=== PATIENT | female | born 1955 | race Caucasian/White ===

== ENCOUNTER 2020-02-27 08:00 | Inpatient (IN) | payer OTHER ==
[~2020-02-27] VITALS: Ht 162.6 cm; Wt 105.2 kg
[2020-02-27] MEDS ORDERED: MELOXICAM15 MG PO (11:53)
[2020-02-27] MEDS ORDERED: GLIPIZIDE XL10 MG PO (11:53)
[2020-02-27] MEDS ORDERED: SYNTHROID50 MCG PO (11:53)
[2020-02-27] MEDS ORDERED: GABAPENTIN400 MG PO (11:54)
[2020-02-27] MEDS ORDERED: GABAPETIN PO (11:55)
[2020-02-27] MEDS ORDERED: SIMVASTA PO (11:55)
[2020-02-27] MEDS ORDERED: HYDROCHLOROTH12.5 MG PO (11:56)
[2020-02-27] MEDS ORDERED: FARXIGA5 MG PO (11:56)
[2020-02-27] MEDS ORDERED: LANTUS (11:57)
[2020-02-27] MEDS ORDERED: ASPIR 8181 MG PO (11:58)
[2020-02-27] MEDS ORDERED: IRBESARTAN-HCT1 EACH PO (11:59)
[2020-03-05] MEDS ORDERED: FARXIGA10 MG PO (10:28)
[2020-03-05] MEDS ORDERED: IRBESARTAN150 MG PO (10:29)
[2020-03-05] MEDS ORDERED: SIMVASTATIN20 MG PO (10:29)
[2020-03-05] MEDS ORDERED: JANUMET 50-1,01 EACH PO (10:29)
[2020-03-05] MEDS ORDERED: LANTUS SOL100 UNIT/1 (10:31)
[2020-03-07] MEDS ORDERED: DUI500 PO (15:48)
[2020-03-07] MEDS ORDERED: ELIQUIS2.5 MG PO (15:48)
[2020-03-07] MEDS ORDERED: PERCOCET 5-3251 EACH PO (15:48)
== END 2020-03-07 18:31 | DRG 470 ==
LOC: O/R 03-05 06:02 → SURH 03-05 06:02
PROVIDERS: ADMIT Orthopaedic Surgery; ATTEND Orthopaedic Surgery
PROC: 0SRD0J9 Replacement of Left Knee Joint with Synthetic Substitute, Cemented, Open Approach (ICD-10-PCS; principal; 2020-03-05 07:00)
DX: M17.12 Unilateral primary osteoarthritis, left knee (principal); E66.9 Obesity, unspecified; E11.9 Type 2 diabetes mellitus without complications; I10 Essential (primary) hypertension; M81.0 Age-related osteoporosis without current pathological fracture

== ENCOUNTER 2021-05-09 06:28 | Day surgery (SDC) | payer OTHER ==
[~2021-05-09 06:28] MED LIST: ASPIR 8181 MG PO; DUI500 PO; ELIQUIS2.5 MG PO; FARXIGA10 MG PO; FARXIGA5 MG PO; GABAPENTIN400 MG PO; GABAPETIN PO; GLIPIZIDE XL10 MG PO; HYDROCHLOROTH12.5 MG PO; IRBESARTAN-HCT1 EACH PO; IRBESARTAN150 MG PO; JANUMET 50-1,01 EACH PO; LANTUS; LANTUS SOL100 UNIT/1; MELOXICAM15 MG PO; PERCOCET 5-3251 EACH PO; SIMVASTA PO; SIMVASTATIN20 MG PO; SYNTHROID50 MCG PO
== END 2021-05-09 12:30 | disposition home or self-care (01) ==
LOC: CIR.AMB 06:28
PROVIDERS: ATTEND Surgery
DX: D24.2 Benign neoplasm of left breast (principal); N60.82 Other benign mammary dysplasias of left breast; Z20.822 Contact with and (suspected) exposure to COVID-19

== ENCOUNTER 2021-11-12 08:45 | Inpatient (IN) | payer OTHER ==
[~2021-11-12] VITALS: Ht 162.6 cm; Wt 97.1 kg
[2021-11-12] MEDS ORDERED: JANUMET 50-1,01 EACH PO (09:45)
[2021-11-12] MEDS ORDERED: HORIZANT600 MG PO (09:46)
[2021-11-12] MEDS ORDERED: FARXIGA10 MG PO (09:46)
[2021-11-21] MEDS ORDERED: DUI500 PO (08:12)
[2021-11-21] MEDS ORDERED: ELIQUIS2.5 MG PO (08:12)
[2021-11-21] MEDS ORDERED: PERCOCET 5-3251 EACH PO (08:12)
== END 2021-11-21 15:03 | DRG 470 ==
LOC: O/R 11-18 06:19 → SURH 11-18 06:19
PROVIDERS: ADMIT Orthopaedic Surgery; ATTEND Orthopaedic Surgery
PROC: 0SRC0J9 Replacement of Right Knee Joint with Synthetic Substitute, Cemented, Open Approach (ICD-10-PCS; principal; 2021-11-18 10:00)
DX: M17.11 Unilateral primary osteoarthritis, right knee (principal); D62 Acute posthemorrhagic anemia; M22.11 Recurrent subluxation of patella, right knee; E66.8 Other obesity; I10 Essential (primary) hypertension; E03.8 Other specified hypothyroidism; E11.9 Type 2 diabetes mellitus without complications; Z20.822 Contact with and (suspected) exposure to COVID-19